=== PATIENT | male | born 1980 | race Caucasian/White ===

== ENCOUNTER 2024-04-24 00:30 | Day surgery (SDC) | payer OTHER, SELFPAY ==
[2024-04-17 11:01] VITALS: BMI 32.3
--- OUTSIDE RECORDS SUMMARY | 2024-04-24 00:32 | XMS_ITS | Continuity of Care Document ---
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 Corneal Lenses (Not For Aphakia) Prescription And Fitting Bilateral Corneal Lenses (Not For Aphakia) 74552 05/21/19 09 RADHA PETERSEN Jakub [facility] Determination Of Refractive State Determination Of Refractive State 23494 05/21/19 09 RADHA PETERSEN I Vania Ophthalmological New Patient Start Comprehensive Care Ophthalmological New Patient Start Comprehensive Care [id number] 05/21/19 09 RADHA PETERSEN I [facility] Ophthalmological New Patient Start Comprehensive Care Ophthalmological New Patient Start Comprehensive Care [id number] 09/21/19 08 KENYATTA LOPEZ [facility] Fundoscopic Exam Extensive Initial Exam Fundoscopic Exam Extensive Initial Exam [id number] 09/21/19 08 KENYATTA LOPEZ [facility] Determination Of Refractive State Determination Of Refractive State 23246 09/21/19 08 KENYATTA LOPEZ [facility] Non-Physician Phone Call To Pt/Provider Intermed (11-20 min) Non-Physician Phone Call To Pt/Provider Intermed (11-20 min) [id number] GENTRY FRITZ [facility] Social History Combined list of available smoking, tobacco, and other social history from [facility] of Defense and [facility] facilities. Social History Type Response Date Comment Sourc e This section is an empty social history section. DoD
[2024-04-24 06:48] VITALS: BP 125/86; PULSE 82; RESP 17; TEMP 36.4; O2SAT 98; BMI 31.3
[2024-04-24] MEDS: LACTATED RINGERS 1,000 ML 150 ML IV CONT (06:58)
--- NOTE | 2024-04-24 07:14 | P.PNAN_ITS ---
Anes - Initial Pre Proc Eval Procedure: Operation Date: 04/24/24 08:00 Proposed Procedures p Screening Colonoscopy - Arsalan Murcia MD Date/Time: 04/24/24 07:14 Surgeon: Arsalan Murcia MD Pre Op Diagnosis: Screening Patient Data Age: 43 Gender: M Height: 1.65 m Weight: 85.4 kg Last Vital Signs Temp 36.4 C L 04/24/24 06:48 Pulse 82 04/24/24 06:48 Resp 17 04/24/24 06:48 BP 125/86 04/24/24 06:48 Pulse Ox 98 04/24/24 06:48 O2 Del Method Room Air 04/24/24 06:48 Allergies Allergy/AdvReac Type Severity Reaction Status Date / Time No Known Allergies Allergy Verified 04/24/24 06:46 Home Medications ?Medication ?Instructions ?Recorded ?Confirmed ?Type testosterone cypionate 200 mg/mL 100 mg IM WEEKLY 04/17/24 04/17/24 History intramuscular oil Patient hx anesthesia problems: none Family hx anesthesia problems: none Results Review: All pre-operative results and documents have been reviewed as part of the pre- operative evaluation. [facility] Social History Social History Living arrangements: with family Spiritual care concerns: No Anes - Eval Final PreProcedure Day of Procedure 04/24/24 07:14 Patient weight: obese Heart: regular rate and rhythm Lungs: clear to auscultation Airway: Mallampati scale class II Neurological: alert and oriented Last oral intake: >/= 8 hours ASA classification: II Emergent: no Anesthetic plan: proceed Anesthesia type and monitoring: general GIVS and standard monitoring Results Review: All pre-operative results and documents have been reviewed as part of the pre- operative evaluation. Informed Consent: The patient's anesthetic plan and its attendant risks and benefits were discussed with the patient/family/POA. Questions were solicited and answers provided to the satisfaction of the patient/family/POA.
--- NOTE | 2024-04-24 07:54 | P.HP_ITS ---
H&P: HPI History of Present Illness Date/Time: 04/24/24 07:54 Chief Complaint: Screening colonoscopy Narrative: This is the patient's first colonoscopy. There are no GI symptoms and there is no family history of colorectal cancer. Review of Systems Review of Systems: All systems reviewed & are unremarkable except as noted in HPI and below [facility] Social History Social History Living arrangements: with family Spiritual care concerns: No Meds Home Medications and Allergies Home Medications ?Medication ?Instructions ?Recorded ?Confirmed ?Type testosterone cypionate 200 mg/mL 100 mg IM WEEKLY 04/17/24 04/17/24 History intramuscular oil Allergies Allergy/AdvReac Type Severity Reaction Status Date / Time No Known Allergies Allergy Verified 04/24/24 06:46 Vital Signs Vital Signs - 24 hr 04/24/24 06:48 Temperature 97.5 F L Pulse Rate 82 Respiratory Rate 17 Blood Pressure 125/86 Pulse Oximetry 98 Oxygen Delivery Room Air Exam Const: General: cooperative and healthy appearing Resp: Effort & Inspection: normal respiratory effort and able to speak in complete sentences Auscultation: clear to auscultation bilaterally Cardio: Rate: regular rate Rhythm: regular rhythm GI: Inspection: normal to inspection GI Palp: No No hepatosplenomegaly present Auscultation: normal bowel sounds Rectal Exam: deferred Skin: General skin exam: normal color Psych: Appearance: grossly normal Mental Status: mental status grossly normal Assessment and Plan Assessment and plan (1) Encounter for screening colonoscopy: Code(s): Z12.11 - Encounter for screening for malignant neoplasm of colon Status: Acute Assessment and Plan: The patient is deemed a good candidate for the procedure. Consent signed. Will proceed.
[2024-04-24 08:16] VITALS: BP 106/68; PULSE 96; RESP 23; O2SAT 95
[2024-04-24 08:26] VITALS: BP 104/65; PULSE 82; RESP 17; O2SAT 96
[2024-04-24 08:36] VITALS: BP 113/80; PULSE 77; RESP 16; O2SAT 98
== END 2024-04-24 08:50 | disposition home or self-care (01) ==
PROVIDERS: Visit Provider Internal Medicine Gastroenterology
PROC: 0DJD8ZZ Inspection of Lower Intestinal Tract, Via Natural or Artificial Opening Endoscopic (ICD-10-PCS; CPT 45378; principal; 2024-04-24 08:00)
DX: Z12.11 Encounter for screening for malignant neoplasm of colon (principal); K63.5 Polyp of colon; K57.30 Diverticulosis of large intestine without perforation or abscess without bleeding; E66.9 Obesity, unspecified; Z68.31 Body mass index [BMI] 31.0-31.9, adult
CPT/HCPCS: 45385; 88305; J2003; J2704; J7120